=== PATIENT | female | born 1940 | race Caucasian/White ===

== ENCOUNTER 2025-11-01 20:53 | Inpatient (IN) | payer MEDICARE ==
[~2025-11-01] VITALS: Ht 163.2 cm; Wt 68.1 kg
--- NOTE | 2025-11-01 21:06 | Physician Documentation ---
History of Present Illness General Stated Complaint: CP Time Seen by MD: 21:02 History of Present Illness Initial Comments This is an 85-year-old female with a known history of hypertension, diverticulitis, currently battling a bout of diverticulitis for the last week, presents for evaluation of left lower quadrant abdominal pain that has been present there for the last week as well as severe excruciating substernal chest pain and pressure radiating to her left shoulder and back. The particular palliating or aggravating factors. Does report shortness a breath. Did not attempt to treat it, how ever the nitroglycerin provided by EMS has been helped. Does not not recall last time she has a cardiac workup, but did see Dr. Miller just a few weeks back. Denies use of tobacco, alcohol or illicit substances. Medication Reconciliation Allergies: Coded Allergies: No Known Allergies (Unverified , 11/01/25) Review of Systems ROS 10 point review of systems was performed and unless noted above in HPI is negative for acute process/complaint. Physical Exam Physical Exam Physical Exam GENERAL: Awake, alert, oriented, GCS 15, no apparent distress, non-toxic appearing, answers questions, follows commands appropriately. Examined in bed 11. HEENT: Atraumatic, normocephalic, pupils equal, extraocular muscles intact, sclerae anicteric, mucus membranes moist, oropharynx is clear, no stridor. NECK: supple, full active range of motion, trachea midline, no thyromegaly, no lymphadenopathy, no JVD. CARDIOVASCULAR: regular rate/rhythm, no murmurs/gallops/rubs, Pulses are 2+ in all extremities and symmetric. Capillary refill less than 2 seconds. PULMONARY: Nonlabored, good air movement ,no respiratory distress, speaking in full sentences, clear to auscultation bilaterally, no wheezing, no ronchi, no rales, no accessory muscle use. GASTROINTESTINAL: Soft, non-tender, non-distended, normal active bowel sounds, no organomegaly, no pulsatile masses, no CVA tenderness. NEUROLOGIC: Lucid with normal mental status. Normal facial symmetry. Moves all extremities symmetrically and with purpose. No truncal ataxia. Speech is fluid without evidence of dysarthria or aphasia, no focal deficits appreciated. MUSCULOSKELETAL: There is full range of motion of all extremities. There is no joint pain or joint swelling or joint erythema. There is no muscle pain or tenderness or swelling. EXTREMITIES: warm, well-perfused, no cyanosis, no clubbing, no edema, no acute deformities. Skin: warm, dry, no rashes or lesions, no jaundice, no petechiae orpurpura. No ecchymosis. PSYCHIATRIC: Normal affect, normal insight, normal concentration. Focused exam: [] Progress Results/Orders Results/Orders Orders - ZANE MAN DO Chest,Single View (11/01/25 21:14) Monitor (11/01/25 21:14) Saline Lock (11/01/25 21:14) Oxygen (11/01/25 21:14) Hs Troponin I W Calculations (11/02/25 00:14) Cta Chest Abdomen Pelvis (11/01/25 23:07) Esmolol/Sodium Cl Bag (Brevibloc 10mg/Ml (11/02/25 00:40) Hospitalist Icu Consultation (11/02/25 00:48) Fill Out Med Reconciliation (11/02/25 00:48) Completed Orders - ZANE MAN DO Chest,Single View (11/01/25 21:14) Cbc/Diff (11/01/25 21:14) BMP (11/01/25 21:14) PBNP (11/01/25 21:14) Electrocardiogram (11/01/25 21:14) Hs Troponin I W Calculations (11/01/25 21:14) Hs Troponin I W Calculations (11/01/25 23:14) Morphine 4mg/Ml Inj. (Morphine Inj.) (11/01/25 22:30) D-Dimer (11/01/25 22:41) Lipase (11/01/25 21:23) Cta Chest Abdomen Pelvis (11/01/25 23:07) Iohexol 350mg/Ml 100ml (Omnipaque 350mg/ (11/01/25 23:17) Morphine 4mg/Ml Inj. (Morphine Inj.) (11/02/25 00:10) Medications Received in ER Medications (Trade) Dose Ordered Sig/Mac Route PRN Reason Start Time Stop Time Status Last Admin Dose Admin (morphine inj.) 4 mg ONCE ONCE IV 11/01/25 22:30 11/01/25 22:31 DC 11/01/25 22:51 4 MG (morphine inj.) 4 mg ONCE ONCE IV 11/02/25 00:10 11/02/25 00:13 DC 11/02/25 00:20 4 MG Vital Signs 11/01/25 11/02/25 11/02/25 11/02/25 21:05 00:04 00:20 00:51 Pulse 72 98 94 Resp 20 20 20 20 B/P (MAP) 125/85 167/98 (121) 167/103 (124) Pulse Ox 94 95 92 Laboratory Tests Test 11/01/25 21:23 11/01/25 23:30 White Blood Count 12.7 H Red Blood Count 4.49 Hemoglobin 13.6 Hematocrit 40.9 Mean Corpuscular Volume 91.1 Mean Corpuscular Hemoglobin 30.3 Mean Corpuscular Hemoglobin Concent 33.2 Red Cell Distribution Width 13.3 Platelet Count 225 Mean Platelet Volume 8.3 Neutrophils (%) (Auto) 80.9 H Lymphocytes (%) (Auto) 12.8 L Monocytes (%) (Auto) 5.2 Eosinophils (%) (Auto) 0.7 Basophils (%) (Auto) 0.4 Neutrophils # (Auto) 10.2 H Lymphocytes # (Auto) 1.6 Monocytes # (Auto) 0.7 Eosinophils # (Auto) 0.1 Basophils # (Auto) 0.0 CBC Comment D-Dimer 3.27 H D-Dimer Comment Sodium Level 135 Potassium Level 4.5 Chloride Level 100 Carbon Dioxide Level 26.3 Anion Gap 9 Blood Urea Nitrogen 12 Creatinine 0.71 Estimated GFR/1.73 m2 78 BUN/Creatinine Ratio 16.9 Glucose Level 132 H Calcium Level 8.3 L Troponin I High Sensitivity 6 6 Pro-B-Type Natriuretic Peptide 79 Albumin 3.5 Lipase 56 Chemistry Comments Troponin I High Sens Percent Delta 0 Troponin I Hi Sens Absolute Change 0 EKG/XRAY/CT/US/VASC/MRI EKG : Additional Comment EKG was obtained and interpreted by myself showing sinus rhythm of 68, normal VA interval, narrow QRS, no QT prolongation, normal axis, no STEMI, T-wave inversion in aVL noted. Medical Decision Making Additional information obtaine: other (EMS) Findings Facility Status: ED Holds, E process The plan was discussed with the patient, who demonstrates clear understanding of the plan and is in agreement with the plan unless otherwise noted in the chart. All questions have been answered, all concerns were addressed unless otherwise documented. I was available throughout their ED stay for frequent reassessment and questions. Differential Diagnoses (considered and possible or likely): [With a respect to her chest pain, Differential diagnosis considered includes chest wall pain, pleurisy, pneumonia, pulmonary embolus, GERD, esophagitis, gastritis, anxiety, stress reaction, costochondritis, acute coronary syndrome, aortic dissection, pericarditis, myocarditis, or pneumothorax. With a respect to her abdominal pain, Differential diagnosis considered includes acute appendicitis, acute cholecystitis, pancreatitis, gastritis, PUD, diverticulitis, mesenteric ischemia, abdominal aortic aneurysm, bowel obstruction, enteritis, colitis, fecal impaction, volvulus, IBS, inflammatory bowel disease, specific food intolerance, peritonitis, perforated viscous, malignancy, UTI, abscess, and abdominal pain NOS. Pelvic source of pain was also considered including endometritis, dysmenorrhea, ovarian cyst, ovarian torsion, PID, TOA, cervicitis, vaginitis, or uterine fibroid. History, physical exam, and workup exclude many of the more serious causes listed above. ] ??Differential Diagnoses (considered and unlikely, not requiring evaluation currently): [] MDM Data Please see HPI for the following: Independent Historians and external Records Review. Historian: [Patient] Independent Historians: ?[] Medication Management: [Reviewed medication list] Social History and determinants: [Reviewed] Please see the body of the note for the following: Any independent interpretations of ECG, imaging studies. All vitals signs/haemodynamics, ordered tests were independently reviewed and i nterpreted by myself. Nursing triage complaint and vitals reviewed, additional nursing notes were reviewed as available and I agree unless otherwise noted or documented in contradiction in the chart Vital Signs: Independently reviewed Labs: Independently interpreted Imaging: Independently interpreted Old Medical Records: Independently reviewed, see HPI for relevant summary and information Pulse Oximetry: [96%] interpreted as [normal on room air] by me [Slack Line Yarder: [Regular Rate, Regular rhythm, no ectopy, NSR] reviewed and interpreted by me] Additionally notably showing: [Hemodynamics reviewed. The patient isn't febrile, not tachycardic, but does have elevated heart rate of 94. She is slightly hypotensive. She isn't hypoxic. CBC shows minimal leukocytosis, 81% neutrophils. Coagulation panel shows notably elevated D-dimer, we will obtain CT angiography of aorta. Chemistry is unremarkable. Initial and repeat troponin are negative. BNP is negative. Chest x-ray was unremarkable. CT angiography showed aortic dissection involving a short segment of aortic arch. There is a ascending aortic aneurysm.] Tests considered but not ordered include: [Not applicable] Social Determinants of Health Impact: Patient was evaluated in [facility] [place] to healthcare due to below par ratio of patient to medical providers. [] Comorbid Conditions Impacting Present Evaluation and Care/Treatment: [See list] Management Discussions with other Healthcare Providers: [Dr. Burgos, Cardiothoracic surgeon. Discussed case. Agrees with the blood pressure and heart rate control, admit to ICU. Detacker regarding admission] Treatment and Disposition Medication Management (Given or considered): [Esmolol drip]. See EMR for details Consideration for Hospitalization/Escalation/Deescalation of Care: Admission to ICU is required for further management of her aortic dissection ?ED Course:?[No significant clinical deterioration. No neurologic deficits.] ?Shared decision making:?[] Code status:?FULL Please see the full Electronic Medical Record for full details of nursing documentation, medications list, other records of complete past medical history and conditions, vital signs, laboratory studies, and any radiologic study interpretations by radiologists. Portions of this note were completed using [employer] dictation software and as a result there may exist minor errors in spelling. I have reviewed elements of past family and social history and agree as included in note. Differential Diagnosis See body of the main note for differential diagnosis Departure Disposition: ADMITTED INPATIENT Admitted to Inpatient Unit: to web application tester Impression: Primary Impression: Acute thoracic aortic dissection Additional Impression: Thoracic aortic aneurysm Condition: Critical Referrals: NO PRIMARY CARE PROVIDER (PCP) Critical Care Note Critical Care Note CRITICAL CARE TIME: [78] minutes Treatments/Evaluations: Close monitoring and treatment of unstable vital signs, cardiorespiratory, and neurologic status, while maintaining tight balance of fluid, respiratory, and cardiac interventions. This time includes discussing the case with the patient and the patients family. This time does not include all procedures stated elsewhere in this record. This time also includes reviewing old records, labs and radiological studies. This time includes examining and re- examining the patient. Additionally, this time also includes arranging care with admitting and consulting physicians. Signature Scribe Signature: No scribe Attestation: The note accurately reflects work and decisions made by me.Zane Man DO 11/02/25 01:16 ZANE MAN DO Nov 01, 2025 21:06
--- NOTE | 2025-11-01 21:25 | ELECTROCARDIOGRAPH REPORT ---
[facility] Test Date: 2025-11-01 Test Time: 21:21:42 Pat Name: ZORA MCCONNELL Department: [facility]- Patient ID: [facility]-[id number] Room: PSYCHIATRIC 2007 Gender: F Head Of Marketing Adometry: : 1940 Requested By: TISHA MAN Order Number: [id number] Reading MD: Dr. ZENON Cox Measurements Intervals [place] Rate: 68 P: 80 ME: 174 QRS: 81 QRSD: 106 T: 108 QT: 424 QTc: 451 Interpretive Statements Sinus rhythm Borderline right axis deviation Borderline T abnormalities, anterior leads Baseline wander in lead(s) V6 Electronically Signed On 11-03-2025 18:39:[address] ZENON Cox Please click the below link to view image of tracing.
[2025-11-01 21:32] LABS: MEAN PLATELET VOLUME 8.3 FL (7.4-10.4); RED CELL DISTRIBUTION WIDTH 13.3 % (11.5-14.5)
[2025-11-01 21:53] LABS: CREATININE 0.71 MG/DL (0.40-0.90); PRO BRAIN NATRIURETIC PEPTIDE 79 PG/ML (0-450); TOTAL CARBON DIOXIDE 26.3 MMOL/L (24-32); eCRCL 53 ML/MIN; eGFR 78 ML/MIN
--- NOTE | 2025-11-01 21:53 | RADIOLOGY REPORT ---
EXAM: DI CHEST,SINGLE VIEW HISTORY: CP TECHNIQUE: 1 view of the chest COMPARISON: None FINDINGS/IMPRESSION: LUNGS: No pleural effusion, consolidation, or pneumothorax. Peribronchial thickening, which is nonspecific however may represent infectious versus inflammatory bronchitis. MEDIASTINUM: Unremarkable. BONES: No acute osseous abnormality. Possible prior healed bilateral proximal humeral surgical neck fractures. OTHER: None.
[2025-11-01] MEDS: morphine 4 MG/ML inj SYRINge IV ONE (22:51)
[2025-11-02] VITALS (36 sets, daily range): BP systolic 99–181; BP diastolic 60–106; PULSE 68–98; RESP 12–21; O2SAT 91–96
[2025-11-02] MEDS: morphine 4 MG/ML inj SYRINge IV ONE ×3 (00:20→04:13)
--- NOTE | 2025-11-02 00:20 | RADIOLOGY REPORT ---
EXAM: CT CTA CHEST ABDOMEN PELVIS W/ IV CONTRAST History: chest pain rad to back, elev dimer Comparison Study: DI CHEST,SINGLE VIEW on DOS: 11/01/25 TECHNIQUE: A digital television camera operator image was obtained. During the uneventful, intravenous administration of contrast material, multislice data acquisition was obtained through the chest, abdomen and pelvis. The data set was subsequently reconstructed into multiplanar reformats.3D images/MIP were performed and reviewed for reporting. Radiation Dose : CTDI vol 28.01 mGy, DLP 1758.95 mGy*cm. Findings: CT chest: Evaluation is degraded by respiratory motion. Lungs: Mild nonspecific ground-glass opacities are seen in the lingula. Scattered atelectasis / scarring. Pleura: Unremarkable Heart/Great vessels: No cardiomegaly or pericardial effusion. There is a 4.6 cm aortic aneurysm. There is an aortic dissection involving a short segment of the aortic arch, just distal to the left subclavian artery origin. Mediastinum: Unremarkable. Soft tissues/Bones: Unremarkable CT abdomen/pelvis: Liver: Unremarkable. Spleen: Unremarkable. Pancreas: Unremarkable. Gallbladder: Prior cholecystectomy with biliary ductal dilatation. Adrenals: Unremarkable. Kidneys: Unremarkable. Unremarkable. Pelvic Viscera: Evaluation is degraded by streak artifact from adjacent hip hardware. Vasculature: No evidence of aneurysm or dissection within the abdominal aorta. Atherosclerotic aortoiliac calcification. Retroperitoneum: Unremarkable. Bowel: There is wall thickening about the rectosigmoid colon. No bowel obstruction. Musculoskeletal: Chronic appearing mild compression of L2 without retropulsion. Grade 1 anterolisthesis of L3 on L4 and L4 on L5. Prior right hip arthroplasty. Soft tissues: Unremarkable. Impression: 1. Aortic dissection involving short-segment of the aortic arch. 4.6 cm ascending aortic aneurysm. 2. Wall thickening of the rectosigmoid colon, an element of proctocolitis cannot be excluded in the appropriate clinical setting. 3. Prior cholecystectomy with biliary ductal dilatation. Comparison with prior imaging is suggested. Consider nonemergent MRCP in further assessment as clinically indicated. 4. Additional findings as detailed. Critical Result: Aoritc Dissection Findings discussed with TISHA MAN at 11/02/2025 12:16 AM, and acknowledged receipt and understanding of the findings.
[2025-11-02] MEDS: esmolol/sodium cl bag 250 ML IV SCH (01:15)
[2025-11-02] MEDS: HYDROcodone/acetaminophen 5mg/325mg tablet PO ONE (02:09)
--- NOTE | 2025-11-02 02:11 | HISTORY AND PHYSICAL ---
History & Physical - Short Providers to CC ~ History of Present Illness Chief Complain & History Night time TeleICU Presented ER because of chest pain radiating to the back, CT chest showed short segment dissection of the ascending Aorta just distal to subclavian artery take off. Patient has history of HTN on Amlodipine 5mg. She was recently diagnosed with diverticulitis on abx. She takes chronic narco 5/325mg BID for knee pain. ED discussed with cardiothoracic surgeon who agreed for patient to be admitted here. She is currently on esmolol titration, BP still 160 and persistent pain Allergies: Coded Allergies: No Known Allergies (Unverified , 11/01/25) Exam Last recorded Lab results: 11/01/25212211/01/252122 Vitals: Vital Signs Date Time Temp Pulse Resp B/P (MAP) Pulse Ox O2 Delivery O2 Flow Rate FiO2 11/02/25 01:25 85 178/115 11/02/25 01:19 16 94 Other: She is in no acute distress On room air Alert and orientated Diagnostic Data Diagnostic Data: Laboratory Tests Test 11/01/25 21:23 D-Dimer 3.27 MG/L FEU (0-0.50) H D-Dimer Comment Advance Care Planning Advanced Care plannin - 30 Minutes Problem\Assessment\Plan Additional Plan Ascending aortic dissection just distal to subclavian artery take off: Esmolol drip target BP less then 120 and HR around 60. Cardiothoracic surgery consulted by ED Pain control, resume home norco, just received 1 time dose for now PRN morphine Restart Amlodipine Yet to reconcile home meds, she does not remember them Unasyn for diverticulits Patient is full code, discussed with her Admit to ICU CCT 60mins MD TEREZA Chacon,MARY Ruiz MD Nov 02, 2025 02:11
[2025-11-02] MEDS ORDERED: HYDR-3965 PO (02:55)
[2025-11-02] MEDS ORDERED: CLON-850 PO (02:55)
[2025-11-02] MEDS ORDERED: AMLO2.5T2 PO (02:55)
[2025-11-02] MEDS: ampicill/sulbac 1.5gm/NS 100ml 100 ML IV SCH (03:52)
[2025-11-02] MEDS: ondansetron/PF 4mg/2ml inj ONE (04:11)
[2025-11-02] MEDS: morphine 4 MG/ML inj SYRINge ONE (04:11)
[2025-11-02] MEDS: ondansetron/PF 4mg/2ml inj IV PRN (04:13)
[2025-11-02] MEDS ORDERED: THYR120T2 PO (06:38)
[2025-11-02] MEDS ORDERED: MIRT-87 PO (06:38)
[2025-11-02] MEDS ORDERED: CLON-369 PO (06:38)
[2025-11-02] MEDS ORDERED: AMOX500T2 PO (06:38)
[2025-11-02] MEDS ORDERED: PANT40TA54 PO (06:38)
[2025-11-02] MEDS ORDERED: PROG100C11 PO (06:38)
[2025-11-02 07:45] LABS: MEAN PLATELET VOLUME 8.3 FL (7.4-10.4); RED CELL DISTRIBUTION WIDTH 13.8 % (11.5-14.5)
[2025-11-02 08:19] LABS: CREATININE 0.63 MG/DL (0.40-0.90); PHOSPHORUS 3.3 MG/DL (2.3-4.5); TOTAL CARBON DIOXIDE 22.0 MMOL/L (24-32); eCRCL 58 ML/MIN; eGFR 90 ML/MIN
--- NOTE | 2025-11-02 09:41 | PROGRESS NOTE ---
Progress Note CV Providers to CC ~ Antibiotics Ordered?: No Subjective Subjective Pt. seen and examined by Dr. Burgos. Found to have a type B dissection with intramural hematoma and ongoing pain. Currently BP controlled on IV esmolol. Addl. po Rx include Amlodipine, Klonopin. Toprol XL being added. Currently rating her chest discomfort down from 10/10 to 8/10. Recommendation is transfer to higher level of care for evaluation for possible stenting. Transfer process intitiated. Objective Vitals Vital Signs Date Time Temp Pulse Resp B/P (MAP) Pulse Ox O2 Delivery O2 Flow Rate FiO2 11/02/25 09:18 99.3 74 119/71 (87) 95 Room Air 11/02/25 08:15 16 Lab Results: 11/02/25 0715 11/02/25 0715 Coagulation Studies Laboratory Tests Test 11/01/25 21:23 D-Dimer 3.27 MG/L FEU (0-0.50) H D-Dimer Comment Cardiac Rhythm: Sinus Rhythm Supervising MD Co-signing Provider: BARBY Murphy Nov 02, 2025 09:41
--- NOTE | 2025-11-02 10:31 | DISCHARGE SUMMARY ---
Discharge Summary Providers to CC ~ Discharge Summary Admission Diagnosis: Aortic dissection Admission Diagnosis Comment: Type B Aortic dissection Hospital Course DATE OF ADMISSION: DATE OF DISCHARGE: Discharge Diagnosis\Comment: Type B Aortic dissection with ongoing chest pain Operations\Procedures: None. Consultants: BINA Sanabria surgery Complications: None Condition on DC: Stable for transfer Discharge Summary: This is a very pleasant 85 yo F pt who presented to the ED with complaints of chest pain. Found to have a Type B aortic dissection with intramural thrombus. Unfortunately she continues to have ongoing chest pain despite BP control on IV esmolol as well as other oral agents. Pt was evaluated by Dr. Burgos this morning. Pt will benefit from transfer to higher level of care for evaluation for stent placement. She was transferred to [facility] by ground 11/03/25 *Problems/Diagnosis: (1) Thoracic aortic aneurysm Status: Chronic (2) Acute thoracic aortic dissection Status: Acute Total Time Spent on D/C: Up to 30 Minutes BARBY HEALY Nov 02, 2025 10:31
--- NOTE | 2025-11-02 10:35 | CONSULTATION REPORT ---
Consult Providers to CC ~ History of Present Illness Reason for Admit\Complaint: chest pain History of Present Illness Ms. Ross is an 85 year old female with a known history of hypertension, who presented to the ED with complaints of sudden onset of substernal chest pain graded at 10/10 by the patient. CTA of the chest demonstrated distal arch short segment focal dissection originating at the base of the left subclavian artery, with extension of circumferential intramural hematoma to the distal descending thoracic aorta. Management has included HR and BP control. This am she continues to complain of 8/10 pain. She denies shortness of breath, palpitation, mental status changes. Allergies: Coded Allergies: No Known Allergies (Unverified , 11/01/25) Home Medications Home Medications Active Reported Clonazepam 0.5 Mg Tablet 1 Tab PO DAILY Pantoprazole Sodium 40 Mg Tablet.dr 1 Tab PO DAILY Mirtazapine 15 Mg Tablet 1.5 Tab PO HS [place] Thyroid (Thyroid) 120 Mg Tablet 1 Tab PO DAILY Progesterone (Progesterone,Micronized) 100 Mg Capsule Amoxicillin 500 Mg Tablet 1 Tab PO BID Norvasc* (Amlodipine Besylate) 2.5 Mg Tablet 1 Tab PO DAILY 30 Days [place] 5/325 MG (Acetaminophen/Hydrocodone Bitart) 5 Mg/325 Mg Tablet 1 Tab PO Q12H PRN PRN 30 Days Klonopin (Clonazepam) 0.5 Mg Tablet 0.5 Mg PO HS Past Medical History Past Medical History HTN, anxiety Past Surgical History Surgical History Comment hysterectomy Exam Vitals: Vital Signs Date Time Temp Pulse Resp B/P (MAP) Pulse Ox O2 Delivery O2 Flow Rate FiO2 11/02/25 09:38 18 11/02/25 09:18 99.3 74 119/71 (87) 95 Room Air General: anxious HEENT: WNL Neck: supple Chest: clear bilat Cardiovascular: RRR, no murmurs Abdomen: soft, non-distended, non-tender Extremities: warm, 2+ pulses, no edema Central Nervous System: no deficits Musculoskeletal: no deformities Skin: no lesions Diagnostic Data Last Recorded Lab Results: 11/02/25 0715 11/02/25 0715 Diagnostic Data: Laboratory Tests Test 11/01/25 21:23 D-Dimer 3.27 MG/L FEU (0-0.50) H D-Dimer Comment Additional Plan 85 yo female with acute [place] type B dissection, with ongoing severe chest pain unabated by standard measures. Given that this may represent an ongoing dynamic process, consideration should be given to intervention in the form of endovascular stenting with zone 2 landing. In the interim, we will reach out to potential accepting facilities. CHI PRICE MD Nov 02, 2025 10:35
[2025-11-02] MEDS: HYDROcodone/acetaminophen 5mg/325mg tablet PO PRN (12:43)
[2025-11-02] MEDS: morphine 4 MG/ML inj SYRINge IV PRN (15:48)
--- NOTE | 2025-11-02 18:42 | PROGRESS NOTE- Residence ---
Progress Note - Resident Providers to CC Resident Creating Document: RIKA MCINTOSH, RES ~ Antibiotic Timeout Antibiotic Ordered?: No Subjective The patient was seen and examined at bedside today. She has acute type B aortic dissection with ongoing severe chest pain. Cardiothoracic surgery on board and is planning to transfer the patient out for endovascular stenting. Objective Vital Signs Date Time Temp Pulse Resp B/P (MAP) Pulse Ox O2 Delivery O2 Flow Rate FiO2 11/02/25 17:14 69 104/60 11/02/25 17:13 99.3 13 93 Room Air Result Diagram: 11/02/25 0715 11/02/25 0715 General: Awake and Alert, no acute distress. HEENT: Conjunctiva pink, Sclera clear, Mucus Membranes moist. Neck: Supple without masses and tenderness. Resp: Unlabored. Lungs clear to auscultation bilaterally. Heart: Regular Rate and rhythm, normal S1 and S2 without murmur, rub or gallop. Abdomen: Soft and non tender no organomegaly Extremities: No cyanosis,clubbing or edema. Skin: Warm and Dry. Coagulation Studies Laboratory Tests Test 11/01/25 21:23 D-Dimer 3.27 MG/L FEU (0-0.50) H D-Dimer Comment Plan Plan Acute ongoing chest pain Acute [place] type B aortic dissection Hypertension Cardiothoracic surgeon, Dr. Burgos on board. Currently on esmolol drip running at 50 mcg/kg/minute. Started her on amlodipine 5 mg daily, metoprolol succinate 50 mg daily. Transfer to outside facility for endovascular stenting in process. Hypothyroidism Continue home thyroid 120 mg daily. Possible diverticulitis CT abdomen showed evidence of proctocolitis and possible diverticulitis. Elevated WBC 12.5. There is no significant abdominal pain or diarrhea. Hold antibiotics for now and continue monitoring. Code Status: Full code Analgesia/Sedation: Clonazepam Lines/Tubes: PIV GI Prophylaxis: Protonix Nutrition: Clear liquid diet Prognosis: Guarded Disposition: The prognosis is guarded. Critical care time spent greater than 35 minutes. Transfer in process. Rika Mcintosh MD Internal Medicine Resident PGY-2 The patient was seen, examined and discussed with the attending physician, Dr. Neil. Date of Service: Nov 02, 2025 Billing Provider: PIA NEIL MD, SOWMYA MANJARI, RES Nov 02, 2025 18:42
[2025-11-03] VITALS (13 sets, daily range): BP systolic 101–165; BP diastolic 59–100; PULSE 71–81; RESP 14–23; O2SAT 92–94
[2025-11-03 02:44] LABS: MEAN PLATELET VOLUME 8.0 FL (7.4-10.4); RED CELL DISTRIBUTION WIDTH 13.7 % (11.5-14.5)
[2025-11-03 02:53] LABS: CREATININE 0.67 MG/DL (0.40-0.90); PHOSPHORUS 2.3 MG/DL (2.3-4.5); TOTAL CARBON DIOXIDE 22.4 MMOL/L (24-32); eCRCL 55 ML/MIN; eGFR 84 ML/MIN
[2025-11-03] MEDS: thyroid, pork 30mg tablet PO SCH (07:38)
[2025-11-03] MEDS: metoprolol succinate 25mg (24-HOUR) SR. Tablet PO SCH (07:39)
[2025-11-03] MEDS: pantoprazole 40mg Tablet.DR PO SCH (07:39)
[2025-11-03] MEDS: morphine 4 MG/ML inj SYRINge IV PRN (10:24)
== END 2025-11-03 10:58 | disposition short-term general hospital (02) | DRG 300 ==
LOC: ER 20:53 → ED HOLD 11-02 01:40 → CICU 2S 11-02 03:35
PROVIDERS: ADMIT Internal Medicine; ATTEND Internal Medicine
PROC: BW251ZZ Computerized Tomography (CT Scan) of Chest, Abdomen and Pelvis using Low Osmolar Contrast (ICD-10-PCS; principal; 2025-11-01)
DX: I71.010 Dissection of ascending aorta (principal); K57.32 Diverticulitis of large intestine without perforation or abscess without bleeding; I51.3 Intracardiac thrombosis, not elsewhere classified; I10 Essential (primary) hypertension; F41.9 Anxiety disorder, unspecified; Z90.710 Acquired absence of both cervix and uterus
CPT/HCPCS: 36415; 71045; 71275; 74174; 80048; 80053; 83690; 83735; 83880; 84100; 84484; 85025; 85379; 87081; 93005; 96374; 99291; 99292; A6213; C1758; G0378; J0295; J2270; J2405; J3490; J7040; Q9967